=== PATIENT | female | born 1945 | race Caucasian/White ===

== ENCOUNTER 2024-06-03 10:31 | Inpatient (IN) | payer MEDICARE ==
[~2024-06-03] VITALS: Ht 152.4 cm; Wt 79.2 kg
[2024-06-03] VITALS (9 sets, daily range): BP systolic 99–173; BP diastolic 58–92; PULSE 44–84; TEMP 97.6–98
[2024-06-03] MEDS ORDERED: NORVASC 5MG5 MG/TAB (10:59)
[2024-06-03] MEDS ORDERED: NORVASC 5MG5 MG/TAB PO (10:59)
[2024-06-03] MEDS ORDERED: LIPITOR20 MG PO (11:00)
[2024-06-03] MEDS ORDERED: HYZAAR 25 MG-101 TAB PO (11:00)
[2024-06-03 11:13] LABS: BASO % 0.4 % (0.0-2.0); EOS # 0.1 K/mm3 (0.0-0.7); EOS % 2.5 % (0.0-4.0); GRAN # 2.9 K/mm3 (1.4-6.5); GRAN % 60.8 % (42.2-75.2); HEMATOCRIT 41.9 % (37.0-47.0); HEMOGLOBIN 14.6 g/dl (12.5-16.0); LYMPH # 1.1 K/mm3 (1.2-3.4); LYMPH % 23.4 % (20.0-51.0); MEAN CELL VOLUME 93 fl (80.0-100.0); MEAN CORPUSCULAR HEMOGLOBIN 33 pg (27-31); MEAN CORPUSCULAR HGB CONC 35 g/dl (33.0-37.0); MEAN PLATELET VOLUME 12.8 fl (7.4-10.4); MONO # 0.6 K/mm3 (0.1-0.6); MONO % 12.7 % (1.7-9.3); PLATELET COUNT 178 K/mm3 (130-400); RED BLOOD COUNT 4.49 M/mm3 (4.10-5.30); REDCELL DISTRIBUTION WIDTH-CV 13.1 % (11.5-14.5)
[2024-06-03 11:33] LABS: CALCIUM 9.6 mg/dL (8.4-10.2); CREATININE, serum 1.01 mg/dL (0.57-1.11); MAGNESIUM 1.9 mg/dL (1.6-2.6); POTASSIUM 3.5 mEq/L (3.5-4.5)
[2024-06-03] MEDS ORDERED: 1/2 NS 1,000 ML IV SCH (11:45)
[2024-06-03] MEDS ORDERED: ceFAZolin 1 G in Water For Injection,Sterile 10 ML IV SCH ×2 (11:45→21:00)
[2024-06-03 12:09] LABS: TSH w REFLEX 3.228 uIU/mL (0.350-4.940)
[2024-06-03] MEDS ORDERED: Midazolam 2 MG/2 ML VIAL IV SCH (12:46)
[2024-06-03] MEDS ORDERED: fentaNYL 50 MCG/ML 2 ML VIAL IV SCH (12:47)
[2024-06-03] MEDS ORDERED: NS 1,000 ML IV.SOLN. IR SCH (12:48)
--- NOTE | 2024-06-03 12:51 | NUR ---
Please see merge document in paper chart for record of ppm implant with Dr. Doyle.
[2024-06-03] MEDS ORDERED: Acetaminophen 325 MG TAB PO PRN (13:30)
--- NOTE | 2024-06-03 20:15 | NUR ---
Initial shift assessment done- states pacemaker site is sore but does not need any pain meds, does not want the ice to incision at this time, left arm sling on, Tele on V paced- no requests, Up to bathroom, steady on feet. VSS
[2024-06-03] MEDS ORDERED: Atorvastatin 20 MG TAB PO SCH (21:00)
[2024-06-04] VITALS (9 sets, daily range): BP systolic 126–148; BP diastolic 73–79; PULSE 71–87; TEMP 97.8–98.2
--- NOTE | 2024-06-04 06:07 | NUR ---
Quiet night, VSS, Tele on 74/paced. No requests
--- NOTE | 2024-06-04 08:46 | NUR ---
See Merge report for procedural sedation/notes
[2024-06-04] MEDS ORDERED: CEPHALEXIN500 M1 PO (09:20)
--- NOTE | 2024-06-04 09:42 | NUR ---
PATIENT RESTING IN BED EATING BREAKFAST. ALERT AND ORIENTED. SHIFT ASSESSMENT COMPLETE. INCISION TO LEFT CHEST IS CDI. LEFT ARM IN SLING. DENIES PAIN OR DISCOMFORT AT THIS TIME. PATIENT ANXIOUS TO GO HOME. DEVICE DOWNLOADED. EKG AND CXR COMPLETE. CALL LIGHT WITHIN REACH.
--- NOTE | 2024-06-04 10:02 | NUR ---
Initial visit; Patient thanked Dumb Waiter Operator for looking in on her and offering God's blessings. Dumb Waiter Operator thanked patient for choosing [facility]. Patient states she is doing very well and hopes to be going home today.
--- NOTE | 2024-06-04 10:55 | NUR ---
Harpsichord Maker met with patient to complete initial intake. Patient lives in [place], [place] with her "dumb cat" and sees Dr. Acosta for primary care. Patient uses [facility] in [place] for medications and denies any DME usage. Patient is independent with ADLS, including driving. Patient reported she has a completed DPOA-HC that designates her friend, Michelle (#[phone]). Patient advised she has a copy at home, Michelle has a copy, and the [facility] should have a copy. Patient remarked that all her family members are which is why she designated Michelle. SW contacted [facility] and left a message requesting copy of DPOA-HC. Discharge Plan: Home
--- NOTE | 2024-06-04 13:34 | NUR ---
THIS RN PROVIDED PATIENT WITH DISCHARGE EDUCATION AND INSTRUCTIONS. ALL QUESTIONS ANSWERED. IV TO LEFT FOREARM DISCONTINUED. MINIMAL DRAINAGE NOTED. PATIENT ESCORTED OFF UNIT VIA WHEELCHAIR AT 1320. ALL BELONGINGS WITH PATIENT.
[2024-06-04] MEDS ORDERED: Cephalexin 500 MG CAP PO SCH (21:00)
== END 2024-06-04 13:20 | disposition home or self-care (01) | DRG 244 ==
LOC: MEDICAL 10:31
PROVIDERS: ADMIT Internal Medicine
PROC: 0JH606Z Insertion of Pacemaker, Dual Chamber into Chest Subcutaneous Tissue and Fascia, Open Approach (ICD-10-PCS; principal; 2024-06-03)
PROC: 02H63JZ Insertion of Pacemaker Lead into Right Atrium, Percutaneous Approach (ICD-10-PCS; 2024-06-03)
PROC: 02HK3JZ Insertion of Pacemaker Lead into Right Ventricle, Percutaneous Approach (ICD-10-PCS; 2024-06-03)
DX: I44.2 Atrioventricular block, complete (principal); E78.5 Hyperlipidemia, unspecified; I10 Essential (primary) hypertension; K25.9 Gastric ulcer, unspecified as acute or chronic, without hemorrhage or perforation; I34.0 Nonrheumatic mitral (valve) insufficiency; Z66 Do not resuscitate; Z79.899 Other long term (current) drug therapy
CPT/HCPCS: J0665-JZ; J0690; J2250; J3010; J7030